=== PATIENT | female | born 1980 | race Caucasian/White ===

== ENCOUNTER → 2016-10-22 | Outpatient (CLI) | payer BC | LOC: COL.VAS 10:57 | DX: R00.2 Palpitations (principal); I51.7 Cardiomegaly; G43.809 Other migraine, not intractable, without status migrainosus; Z86.79 Personal history of other diseases of the circulatory system ==

== ENCOUNTER → 2017-04-22 | Outpatient (CLI) | payer BC ==
[~2017-04-22] MED LIST: CLARITIN 1010 MG/TAB PO; CORGARD20 MG PO; LANOXIN 0.25M0.25 MG PO; LOW-OGESTREL 281 TAB PO
== END ==
LOC: COL.PUL 11:19
DX: R06.00 Dyspnea, unspecified (principal)

== ENCOUNTER 2017-04-23 07:02 | Outpatient (CLI) | payer BC ==
[~2017-04-23] VITALS: Ht 175.3 cm; Wt 95.9 kg
[2017-04-23] MEDS ORDERED: LANOXIN 0.25M0.25 MG PO (08:06)
[2017-04-23] MEDS ORDERED: LOW-OGESTREL 281 TAB PO (08:06)
[2017-04-23] MEDS ORDERED: CLARITIN 1010 MG/TAB PO (08:07)
[2017-04-23 08:11] VITALS: BP 114/71; PULSE 68; TEMP 98.5
[2017-04-23 09:15] VITALS: BP 120/73; PULSE 70
[2017-04-23 09:30] VITALS: BP 115/80; PULSE 71
[2017-04-23 09:45] VITALS: BP 110/74; PULSE 69
[2017-04-23 10:00] VITALS: BP 116/74; PULSE 67
[2017-04-23] MEDS ORDERED: CORGARD20 MG PO (10:13)
[2017-04-23 10:24] VITALS: BP 114/73; PULSE 71
== END 2017-04-23 10:40 | disposition home or self-care (01) ==
LOC: EUO 07:02
DX: R55 Syncope and collapse (principal); R00.2 Palpitations; R42 Dizziness and giddiness; R06.02 Shortness of breath; I49.3 Ventricular premature depolarization